=== PATIENT | male | born 1965 | race Hispanic/Latino ===

== ENCOUNTER → 2018-06-07 | Outpatient (CLI) | payer BC ==
--- NOTE | 2018-06-07 21:36 | Diagnostic Imaging Report ---
EXAM: Renal Ultrasound INDICATION: Hematuria COMPARISON: None TECHNIQUE: Transverse and longitudinal sonographic images of the kidneys and bladder were obtained. FINDINGS: RIGHT KIDNEY: 9.9 x 4.4 x 5.6 cm, normal cortical thickness. Echogenicity: Normal Hydronephrosis: None Calculi: None Cyst/Mass: Simple cyst inferior lateral aspect measuring 1.8 x 1.3 x 1.4 cm LEFT KIDNEY: 10.7 x 6.8 x 4.4 cm, normal cortical thickness. Echogenicity: Normal Hydronephrosis: None Calculi: None Cyst/Mass: None BLADDER: Normal in appearance. Prostate volume 5.1 cc. Bilateral urinary jets visualized in the bladder. IMPRESSION: Normal renal ultrasound Signed by: Dr. Celina Flores M.D. on 06/07/2018 9:33 PM
== END ==
LOC: US 16:35
PROVIDERS: ATTEND Urology
DX: R31.29 Other microscopic hematuria (principal)
CPT/HCPCS: 76770